=== PATIENT | female | born 2000 | race Caucasian/White ===

== ENCOUNTER 2022-10-08 07:08 | Inpatient (IN) | payer OTHER ==
[2022-10-08] MEDS ORDERED: BUTORPHANOL TARTRATE 1 MG/ML VIAL IVPB PRN (07:57)
[2022-10-08] MEDS ORDERED: ELECTROLYTE-148 SOLN 1,000 ML IV SCH (08:00)
[2022-10-08] MEDS ORDERED: OXYTOCIN 30 UNITS in 0.9% NS 30 UNIT/500 ML INFUS.BAG IVPB SCH (08:00)
[2022-10-08 08:33] VITALS: BMI 26.6
[2022-10-08 08:43] LABS: BASO % 0.5 % (0-2.0); EOS % 1.8 % (0-4.5); HEMATOCRIT 37.5 % (32.4-45.2); LYMPH % 21.1 % (8-40); MCH 29.7 pg (25.7-33.7); MCHC 34.6 g/dl (32.0-36.0); MEAN CELL VOLUME 85.9 fl (80-96); MEAN PLT VOLUME 11.1 fl (7.5-11.1); MONO % 6.5 % (3.8-10.2); NEUT % 70.1 % (42.8-82.8); PLATELET COUNT 78 10^3/uL (134-434); RBC 4.36 M/mm3 (3.60-5.2); WHITE BLOOD COUNT 9.9 K/mm3 (4.0-10.0)
[2022-10-08 08:50] LABS: INR 1.06 (0.83-1.09); PROTHROMBIN TIME (PATIENT) 12.3 SEC (9.7-13.0)
[2022-10-08 08:53] LABS: ACTIVATED PTT 29.3 SECONDS (25.2-36.5)
[2022-10-08 08:59] LABS: CALCIUM 8.8 mg/dL (8.5-10.1)
[2022-10-08 09:00] LABS: BLOOD UREA NITROGEN 10.6 mg/dL (7-18)
[2022-10-08] MEDS ORDERED: PROMETHAZINE HCL 25 MG/1 ML VIAL IVPB ONE (09:00)
[2022-10-08 09:03] LABS: CREATININE 0.6 mg/dL (0.55-1.3)
[2022-10-08 09:27] LABS: SYPHILIS W/ RPR CONF NON-REACTIVE (NONREACTIVE)
[2022-10-08 09:56] LABS: HIV INTERPRETATION NEGATIVE (NEGATIVE)
[2022-10-08 10:55] LABS: URIC ACID 4.8 mg/dL (2.6-7.2)
[2022-10-08 11:13] LABS: RETICULOCYTES 1.68 % (0.5-1.5)
[2022-10-08 11:41] LABS: BASO % 0.5 % (0-2.0); EOS % 1.3 % (0-4.5); HEMATOCRIT 36.1 % (32.4-45.2); HEMOGLOBIN 12.5 GM/dL (10.7-15.3); MCH 29.8 pg (25.7-33.7); MCHC 34.6 g/dl (32.0-36.0); MEAN CELL VOLUME 86.1 fl (80-96); MEAN PLT VOLUME 11.6 fl (7.5-11.1); MONO % 7.6 % (3.8-10.2); NEUT % 68.6 % (42.8-82.8); PLATELET COUNT 82 10^3/uL (134-434); RBC 4.19 M/mm3 (3.60-5.2); WHITE BLOOD COUNT 9.5 K/mm3 (4.0-10.0)
[2022-10-08] MEDS ORDERED: FENTANYL/BUPIVACAINE/NS/PF - PCEA - 50 ML DISP.SYRIN EP ONE (11:51)
[2022-10-08] MEDS ORDERED: NALOXONE HCL 0.4 MG/ML VIAL IVPUSH PRN (13:07)
[2022-10-08] MEDS ORDERED: FENTANYL/BUPIVACAINE/NS/PF - PCEA - 50 ML DISP.SYRIN EP SCH (13:15)
[2022-10-08] MEDS ORDERED: OXYTOCIN 20 UNITS in 0.9% NS 20 UNIT/1,000 ML INFUS.BAG IV ONE (15:22)
[2022-10-08] MEDS ORDERED: LIDOCAINE HCL 1% PRESERVATIVE FREE - 30ML VIAL ONE (15:23)
[2022-10-08] MEDS ORDERED: BENZOCAINE 28 GM HEMORRHOIDAL OINTMENT TP PRN (16:31)
[2022-10-08] MEDS ORDERED: oxyCODONE HCL 5 MG TABLET PO PRN (16:31)
[2022-10-08] MEDS ORDERED: BENZOCAINE 20% 57 GM BOTTLE TP PRN (16:31)
[2022-10-08] MEDS ORDERED: METHYLERGONOVINE MALEATE 0.2 MG/1 ML AMP IM PRN (16:31)
[2022-10-08] MEDS ORDERED: BISACODYL 10 MG SUPP.RECT RC PRN (16:31)
[2022-10-08] MEDS ORDERED: WITCH HAZEL 50% (TUCKS) 40 PAD/JAR PAD TP PRN (16:31)
[2022-10-08] MEDS ORDERED: OXYTOCIN 20 UNITS in 0.9% NS 20 UNIT/1,000 ML INFUS.BAG IV SCH (16:45)
[2022-10-08] MEDS ORDERED: IBUPROFEN 600 MG TABLET (FP) PO ONE (17:18)
[2022-10-08] MEDS: IBUPROFEN 600 MG TABLET (FP) PO PRN ×2 (17:18→21:47)
[2022-10-08 17:44] LABS: CORD BASE EXCESS -2.5 mmol/L (0-2); CORD HCO3 23.9 mmHg (20-29); CORD PCO2 47.5 mmHg (30-78); CORD pH 7.32 (7.14-7.44)
[2022-10-08] MEDS: ACETAMINOPHEN 325 MG TABLET (FP) PO PRN ×2 (17:50→23:14)
[2022-10-08] MEDS ORDERED: ACETAMINOPHEN 325 MG TABLET (FP) ONE (17:57)
[2022-10-08] MEDS: FERROUS SO4 325 MG TABLET (FP) PO SCH (18:04)
[2022-10-08 18:05] LABS: CORD HCO3 23.9 mmHg (20-29); CORD pH 7.158 (7.14-7.44)
[2022-10-09] MEDS: IBUPROFEN 600 MG TABLET (FP) PO PRN ×3 (05:31→12:17)
[2022-10-09 07:48] LABS: BASO % 0.4 % (0-2.0); EOS % 0.9 % (0-4.5); HEMATOCRIT 35.6 % (32.4-45.2); HEMOGLOBIN 12.1 GM/dL (10.7-15.3); LYMPH % 18.8 % (8-40); MCH 29.5 pg (25.7-33.7); MEAN CELL VOLUME 86.8 fl (80-96); MONO % 6.6 % (3.8-10.2); NEUT % 73.3 % (42.8-82.8); PLATELET COUNT 82 10^3/uL (134-434); RDW 14.2 % (11.6-15.6); WHITE BLOOD COUNT 13.4 K/mm3 (4.0-10.0)
[2022-10-09] MEDS: FERROUS SO4 325 MG TABLET (FP) PO SCH ×3 (09:17→18:19)
[2022-10-09 09:43] LABS: POC NITRAZINE POS
[2022-10-09] MEDS ORDERED: PRENATAL VITAMINS W/ FOLIC ACID TABLET (FP) PO SCH (10:00)
[2022-10-09 11:11] VITALS: RESP 18
[2022-10-09] MEDS: ACETAMINOPHEN 325 MG TABLET (FP) PO PRN (15:22)
[2022-10-09 15:47] VITALS: BP 142/81; PULSE 81; TEMP 97.8
[2022-10-09] MEDS ORDERED: SENNOSIDES/DOCUSATE COMBO (SENNA PLUS) TABLET (UD) PO PRN (22:00)
== END 2022-10-09 18:50 | disposition home or self-care (01) | DRG 560 ==
LOC: JLDR 07:08 → J3W 20:49
PROVIDERS: ADMIT Obstetrics & Gynecology; ATTEND Obstetrics & Gynecology
PROC: 10E0XZZ Delivery of Products of Conception, External Approach (ICD-10-PCS; principal; 2022-10-08)
PROC: 0HQ9XZZ Repair Perineum Skin, External Approach (ICD-10-PCS; 2022-10-08)
PROC: 3E033VJ Introduction of Other Hormone into Peripheral Vein, Percutaneous Approach (ICD-10-PCS; 2022-10-08)
DX: O70.0 First degree perineal laceration during delivery (principal); O69.81X0 Labor and delivery complicated by cord around neck, without compression, not applicable or unspecified; Z3A.39 39 weeks gestation of pregnancy; Z37.0 Single live birth
CPT/HCPCS: 36415; 36600; 59409; 80048; 82803; 82977; 83986-QW; 84450; 84460; 84550; 85025; 85045; 85610; 85730; 86780; 86850; 86900; 86901; 87389; C9803-CS; U0003; U0005

== ENCOUNTER 2023-04-10 11:09 | Emergency (ER) | payer OTHER ==
[2023-04-10 11:14] VITALS: BMI 21.9
[2023-04-10] MEDS ORDERED: SODIUM CHLORIDE 1,000 ML IV STA (12:21)
[2023-04-10] MEDS ORDERED: FAMOTIDINE 20 MG/50 ML IVPB 20 MG/50 ML MG IVPB ONE ×2 (12:30→12:32)
[2023-04-10] MEDS ORDERED: ONDANSETRON 4 MG/2 ML VIAL IVPUSH ONE (12:30)
[2023-04-10] MEDS ORDERED: MAG HYDROX/AL HYDROX/SIMETH 30 ML UNIT-DOSE CUP PO ONE (12:30)
[2023-04-10] MEDS ORDERED: ONDANSETRON 4 MG/2 ML VIAL ONE (12:32)
[2023-04-10] MEDS ORDERED: MAG HYDROX/AL HYDROX/SIMETH 30 ML UNIT-DOSE CUP ONE (12:32)
[2023-04-10 13:14] LABS: EOS % 1.3 % (0-4.5); HEMATOCRIT 43.5 % (32.4-45.2); HEMOGLOBIN 14.3 GM/dL (10.7-15.3); LYMPH % 39.5 % (8-40); MCH 27.3 pg (25.7-33.7); MCHC 32.9 g/dl (32.0-36.0); MEAN PLT VOLUME 10.4 fl (7.5-11.1); NEUT % 50.2 % (42.8-82.8); PLATELET COUNT 240 10^3/uL (134-434); RBC 5.24 M/mm3 (3.60-5.2); RDW 12.7 % (11.6-15.6); WHITE BLOOD COUNT 6.8 K/mm3 (4.0-10.0)
[2023-04-10 13:18] LABS: HCG,QUALITATIVE URINE Negative
[2023-04-10 13:21] LABS: EPI CELLS >36 /uL (0-25.1); HYALINE CASTS 0 /uL (0-3.1); PH,URINE >= 9.0 (5.0-8.0); URINE APPEARANCE CLEAR; URINE BACTERIA 576 /uL (0-1359); URINE BILIRUBIN NEGATIVE (NEGATIVE); URINE COLOR YELLOW; URINE GLUCOSE (UA) NEGATIVE (NEGATIVE); URINE KETONE NEGATIVE (NEGATIVE); URINE LEUK ESTERASE TRACE (NEGATIVE); URINE NITRITE NEGATIVE (NEGATIVE); URINE PROTEIN NEGATIVE (NEGATIVE); URINE RBC 9 /uL (0-23.9); URINE WBC 27 /uL (0-25.8)
[2023-04-10 13:42] LABS: POTASSIUM 4.3 mmol/L (3.5-5.1)
[2023-04-10 13:44] LABS: CALCIUM 9.7 mg/dL (8.5-10.1)
[2023-04-10 13:45] LABS: ALBUMIN 4.2 g/dl (3.4-5.0); BLOOD UREA NITROGEN 8.8 mg/dL (7-18)
[2023-04-10 13:48] LABS: CREATININE 0.8 mg/dL (0.55-1.3)
[2023-04-10 13:49] LABS: BILIRUBIN,TOTAL 1.1 mg/dL (0.2-1); TOT PROT 7.8 g/dl (6.4-8.2)
[2023-04-10 15:54] VITALS: BP 122/72; PULSE 79; RESP 19; TEMP 98.6
== END 2023-04-10 15:53 | disposition home or self-care (01) ==
LOC: JER 11:09
PROC: 3E033GC Introduction of Other Therapeutic Substance into Peripheral Vein, Percutaneous Approach (ICD-10-PCS; principal; 2023-04-10)
PROC: 3E033GC Introduction of Other Therapeutic Substance into Peripheral Vein, Percutaneous Approach (ICD-10-PCS; 2023-04-10)
PROC: 3E0337Z Introduction of Electrolytic and Water Balance Substance into Peripheral Vein, Percutaneous Approach (ICD-10-PCS; 2023-04-10)
DX: R10.13 Epigastric pain (principal); R11.2 Nausea with vomiting, unspecified; K29.00 Acute gastritis without bleeding
CPT/HCPCS: 36415; 74018-TC-FY; 76705-TC; 80053; 81003; 82150; 83690; 84703; 85025; 86677; 87086; 99285-25

== ENCOUNTER 2024-10-06 13:40 | Inpatient (IN) | payer OTHER ==
[2024-10-06] MEDS: ELECTROLYTE-148 SOLN 1,000 ML IV SCH ×2 (15:30→20:15)
[2024-10-06 15:52] VITALS: BMI 27.6
[2024-10-06 16:34] LABS: BASO % 0.4 % (0-2.0); EOS % 0.7 % (0-4.5); HEMATOCRIT 37.6 % (32.4-45.2); HEMOGLOBIN 12.5 GM/dL (10.7-15.3); LYMPH % 20.3 % (8-40); MCH 28.3 pg (25.7-33.7); MCHC 33.3 g/dl (32.0-36.0); MEAN PLT VOLUME 10.8 fl (7.5-11.1); MONO % 7.1 % (3.8-10.2); NEUT % 71.5 % (42.8-82.8); PLATELET COUNT 109 10^3/uL (134-434); RBC 4.42 M/mm3 (3.60-5.2); RDW 13.5 % (11.6-15.6); WHITE BLOOD COUNT 12.5 K/mm3 (4.0-10.0)
[2024-10-06 16:42] LABS: INR 1.02 (0.83-1.09); PROTHROMBIN TIME (PATIENT) 11.1 SEC (9.7-13.0)
[2024-10-06 16:44] LABS: ACTIVATED PTT 27.8 SECONDS (25.2-36.5)
[2024-10-06 16:56] LABS: POTASSIUM 3.8 mmol/L (3.5-5.1)
[2024-10-06 16:57] LABS: CALCIUM 8.9 mg/dL (8.5-10.1)
[2024-10-06 16:58] LABS: BLOOD UREA NITROGEN 8.8 mg/dL (7-18)
[2024-10-06 17:01] LABS: CREATININE 0.4 mg/dL (0.55-1.3)
[2024-10-06] MEDS ORDERED: OXYTOCIN 30 UNITS in 0.9% NS 30 UNIT/500 ML INFUS.BAG IVPB ONE (17:01)
[2024-10-06] MEDS ORDERED: SODIUM CHLORIDE 100 ML IVPB ONE (17:01)
[2024-10-06] MEDS ORDERED: AMPICILLIN SODIUM 2 GM VIAL ONE (17:01)
[2024-10-06] MEDS: OXYTOCIN 30 UNITS in 0.9% NS 30 UNIT/500 ML INFUS.BAG IVPB SCH (17:18)
[2024-10-06] MEDS: AMPICILLIN - 2 GM in SODIUM CHLORIDE 100 ML IVPB ONE (17:18)
[2024-10-06 17:41] LABS: HIV INTERPRETATION NEGATIVE (NEGATIVE)
[2024-10-06 19:20] LABS: RETICULOCYTES 1.86 % (0.5-1.5)
[2024-10-06 19:45] LABS: POTASSIUM 3.7 mmol/L (3.5-5.1)
[2024-10-06 19:47] LABS: CALCIUM 8.9 mg/dL (8.5-10.1)
[2024-10-06 19:48] LABS: ALBUMIN 2.8 g/dl (3.4-5.0); BLOOD UREA NITROGEN 9.4 mg/dL (7-18)
[2024-10-06 19:50] LABS: GAMMA GLUTAMYL TRANSPEPTIDASE 13 U/L (5-85)
[2024-10-06 19:51] LABS: CREATININE 0.5 mg/dL (0.55-1.3)
[2024-10-06 19:52] LABS: BILIRUBIN,TOTAL 0.8 mg/dL (0.2-1)
[2024-10-06 19:53] LABS: SGOT/AST 26 U/L (15-37); SGPT/ALT 18 U/L (13-61); TOT PROT 6.4 g/dl (6.4-8.2)
[2024-10-06] MEDS ORDERED: AMPICILLIN SODIUM 1 GM VIAL ONE (21:05)
[2024-10-06] MEDS: AMPICILLIN - 1 GM in SODIUM CHLORIDE 100 ML IVPB SCH (21:10)
[2024-10-06] MEDS ORDERED: FENTANYL/BUPIVACAINE/NS/PF - PCEA - 50 ML DISP.SYRIN EP ONE (22:20)
[2024-10-06] MEDS: FENTANYL/BUPIVACAINE/NS/PF - PCEA - 50 ML DISP.SYRIN EP SCH (22:45)
[2024-10-06] MEDS ORDERED: NALOXONE HCL 0.4 MG/ML VIAL IVPUSH PRN (22:54)
[2024-10-07] MEDS ORDERED: AMPICILLIN SODIUM 1 GM VIAL ONE ×2 (00:55→05:00)
[2024-10-07] MEDS ORDERED: FENTANYL/BUPIVACAINE/NS/PF - PCEA - 50 ML DISP.SYRIN EP ONE ×2 (03:24→06:06)
[2024-10-07] MEDS ORDERED: LIDOCAINE HCL 1% PRESERVATIVE FREE - 30ML VIAL ONE (06:20)
[2024-10-07] MEDS ORDERED: OXYTOCIN 20 UNITS in 0.9% NS 20 UNIT/1,000 ML INFUS.BAG IV ONE (06:20)
[2024-10-07] MEDS ORDERED: BENZOCAINE 28 GM HEMORRHOIDAL OINTMENT TP PRN (06:33)
[2024-10-07] MEDS ORDERED: METHYLERGONOVINE MALEATE 0.2 MG/1 ML AMP IM PRN (06:33)
[2024-10-07] MEDS ORDERED: BISACODYL 10 MG SUPP.RECT RC PRN (06:33)
[2024-10-07] MEDS ORDERED: WITCH HAZEL 50% (TUCKS) 40 PAD/JAR PAD TP PRN (06:33)
[2024-10-07] MEDS ORDERED: BENZOCAINE 20% 57 GM BOTTLE TP PRN (06:33)
[2024-10-07 08:48] LABS: CORD BASE EXCESS -7.1 mmol/L (0-2); CORD HCO3 18.6 mmHg (20-29); CORD PCO2 38.2 mmHg (30-78); CORD pH 7.306 (7.14-7.44)
[2024-10-07 08:50] LABS: CORD BASE EXCESS -5.7 mmol/L (0-2); CORD HCO3 20.6 mmHg (20-29); CORD pH 7.298 (7.14-7.44)
[2024-10-07] MEDS: BUTORPHANOL TARTRATE 2 MG/ML VIAL IVPB ONE (08:55)
[2024-10-07] MEDS: PROMETHAZINE HCL 25 MG/1 ML VIAL IVPB ONE (08:56)
[2024-10-07] MEDS ORDERED: IBUPROFEN 600 MG TABLET (FP) PO ONE (08:57)
[2024-10-07] MEDS: OXYTOCIN 20 UNITS in 0.9% NS 20 UNIT/1,000 ML INFUS.BAG IV SCH (09:29)
[2024-10-07] MEDS: oxyCODONE HCL 5 MG TABLET PO PRN (09:31)
[2024-10-07] MEDS: FERROUS SO4 325 MG TABLET (FP) PO SCH (09:31)
[2024-10-07] MEDS: PRENATAL VITAMINS W/ FOLIC ACID TABLET (FP) PO SCH (09:31)
[2024-10-07] MEDS: IBUPROFEN 600 MG TABLET (FP) PO PRN (11:50)
[2024-10-07] MEDS: ACETAMINOPHEN 325 MG TABLET (FP) PO PRN (21:21)
[2024-10-08 06:08] VITALS: BP 115/82; PULSE 101; RESP 18; TEMP 97.9
[2024-10-08 08:28] LABS: BASO % 0.4 % (0-2.0); EOS % 0.8 % (0-4.5); HEMATOCRIT 36.3 % (32.4-45.2); LYMPH % 25.1 % (8-40); MCH 28.3 pg (25.7-33.7); MCHC 33.1 g/dl (32.0-36.0); MEAN CELL VOLUME 85.6 fl (80-96); MEAN PLT VOLUME 11.1 fl (7.5-11.1); MONO % 6.6 % (3.8-10.2); NEUT % 67.1 % (42.8-82.8); PLATELET COUNT 114 10^3/uL (134-434); RBC 4.24 M/mm3 (3.60-5.2); RDW 13.8 % (11.6-15.6); WHITE BLOOD COUNT 11.9 K/mm3 (4.0-10.0)
[2024-10-08] MEDS ORDERED: SENNOSIDES/DOCUSATE COMBO (SENNA PLUS) TABLET (UD) PO PRN (22:00)
[2024-10-14 08:55] LABS: POC NITRAZINE NEG
== END 2024-10-08 13:50 | disposition home or self-care (01) | DRG 560 ==
LOC: JLDR 13:40 → J3W 10-07 09:00
PROVIDERS: ADMIT Obstetrics & Gynecology; ATTEND Obstetrics & Gynecology
PROC: 10E0XZZ Delivery of Products of Conception, External Approach (ICD-10-PCS; principal; 2024-10-07)
DX: O41.03X0 Oligohydramnios, third trimester, not applicable or unspecified (principal); O99.12 Other diseases of the blood and blood-forming organs and certain disorders involving the immune mechanism complicating childbirth; D69.6 Thrombocytopenia, unspecified; Z3A.37 37 weeks gestation of pregnancy; Z37.0 Single live birth
CPT/HCPCS: 36415; 36600; 59409; 80048; 80053; 82570; 82803; 82977; 83010; 83986-QW; 84156; 84450; 84460; 84550; 85025; 85032; 85045; 85610; 85730; 86780; 86803; 86850; 86900; 86901; 87389